=== PATIENT | male | born 1945 | race Caucasian/White ===

== ENCOUNTER → 2022-10-14 14:58 | Outpatient (BNVA) | payer MEDICARE, BC, SELFPAY | PROVIDERS: PCP Family Medicine; Visit Provider Psychiatry & Neurology Neurology | DX: F03.90 Unspecified dementia, unspecified severity, without behavioral disturbance, psychotic disturbance, mood disturbance, and anxiety (principal); R47.01 Aphasia | CPT/HCPCS: 99202 ==

== ENCOUNTER 2022-10-27 10:04 | Outpatient (REF) | payer MEDICARE, SELFPAY ==
--- NOTE | ~2022-10-27 | CT_ITS ---
EXAMINATION: CT HEAD WITHOUT CONTRAST CLINICAL INFORMATION: Unspecified dementia COMPARISON: None available. TECHNIQUE: Contiguous axial imaging was performed from the skull base to vertex without intravenous administration of contrast. This CT examination was performed using dose optimization techniques as appropriate, variously including the following: *Automated exposure control *Adjustment of mA and/or kV according to patient size (this includes techniques or standardized protocols for targeted exams where dose is matched to indication/reason for exam; i.e. extremities or head) *Use of iterative reconstruction technique DLP: 832 mGy-cm FINDINGS: There is no acute intra-axial, extra-axial bleed, masses, collection midline shift. No acute infarction in evolution. There is no edema. There is minimal periventricular hypodensity in both cerebral hemispheres without mass effect. No lacunar infarction seen. The lateral ventricles are enlarged but symmetrical. Mild prominence of cortical sulci seen. The third and fourth ventricles are minimally dilated. No abnormality seen in the posterior fossa. Bone windows reveal no calvarial abnormality. Bilateral paranasal sinuses and mastoid air cells are well-aerated. CT/CT head/brain wo IV con IMPRESSION: 1. No acute intracranial process seen. 2. Mild cerebral volume loss with chronic small vessel ischemic changes in both cerebral hemispheres.
== END 2022-10-27 10:05 | disposition home or self-care (01) ==
LOC: HO.CT 10:04
PROVIDERS: PCP Family Medicine; Visit Provider Psychiatry & Neurology Neurology
DX: F03.90 Unspecified dementia, unspecified severity, without behavioral disturbance, psychotic disturbance, mood disturbance, and anxiety (principal)
CPT/HCPCS: 70450

== ENCOUNTER → 2023-01-14 13:34 | Outpatient (BNVA) | payer MEDICARE, SELFPAY | PROVIDERS: PCP Family Medicine; Visit Provider Psychiatry & Neurology Neurology | DX: F03.90 Unspecified dementia, unspecified severity, without behavioral disturbance, psychotic disturbance, mood disturbance, and anxiety (principal); R47.01 Aphasia; Z98.890 Other specified postprocedural states; Z79.82 Long term (current) use of aspirin; Z79.4 Long term (current) use of insulin; Z79.899 Other long term (current) drug therapy | CPT/HCPCS: Q3014 ==